=== PATIENT | male | born 1945 | race African-American/Black ===

== ENCOUNTER 2016-03-27 17:05 | Emergency (ER) | payer MEDICARE ==
--- NOTE | 2016-03-27 17:23 | ER Document Report ---
ED Medical Screen (RME) - General Stated Complaint: URINARY PROBLEM Notes: dark urine for 3 days was previously taking doxy and flagyl for an "infection" no other medical problems I have greeted and performed a rapid initial assessment of this patient. A comprehensive ED assessment and evaluation of the patient, analysis of test results and completion of the medical decision making process will be conducted by additional ED providers. Physical Exam - Vital signs Vitals: Temp Pulse Resp BP Pulse Ox 97.4 F 74 18 126/74 H 98 03/27/16 17:19 03/27/16 17:19 03/27/16 17:19 03/27/16 17:19 03/27/16 17:19 Course - Vital Signs Vital signs: Temp Pulse Resp BP Pulse Ox 97.4 F 74 18 126/74 H 98 03/27/16 17:19 03/27/16 17:19 03/27/16 17:19 03/27/16 17:19 03/27/16 17:19
[2016-03-27 18:50] LABS: APPEARANCE,URINE CLEAR; BILIRUBIN,URINE NEGATIVE (NEGATIVE); GLUCOSE, URINE NEGATIVE (NEGATIVE); KETONES,URINE NEGATIVE (NEGATIVE); LEUKOCYTE ESTERASE,URINE NEGATIVE (NEGATIVE); NITRITE,URINE NEGATIVE (NEGATIVE); PROTEIN,URINE NEGATIVE (NEGATIVE); URINE SPECIFIC GRAVITY 1.026; UROBILINOGEN,URINE NEGATIVE mg/dL (<2.0)
--- NOTE | 2016-03-27 18:50 | ER Document Report ---
ED GI/ - General Mode of Arrival: Ambulatory Information source: Patient TRAVEL OUTSIDE OF THE [place] IN LAST 30 DAYS: No - HPI Patient complains to provider of: Other - Dark Colored Urine Onset: Other - 3 days ago Timing/Duration: Sudden, Persistent <THAO GARCIA - Last Filed: 03/27/16 18:43> <HARIKA JAMESON - Last Filed: 03/27/16 21:43> - General Chief Complaint: Urinary Problem Stated Complaint: URINARY PROBLEM Notes: Patient is a 70 year old male presenting to the emergency department concerned of dark colored urine for the past 3 days. Patient's relative states that the urine that was collected here in the emergency department is not as dark as it has been at home. Patient is here visiting from [place], and his primary care provider has prescribed him Flagyl, Doxycycline, and Prilosec (03/14/2016) to take for an infection that neither the patient nor his relative know any information about. Patient smokes less than one pack per day and has a beer on occasion. Patient also has some mild dementia that he is not treated for. (THAO GARCIA) - Related Data Allergies/Adverse Reactions: No Known Allergies Allergy (Unverified 03/27/16 17:22) Past Medical History - General Information source: Patient, Relative - Social History Smoking Status: Never Smoker Chew tobacco use (# tins/day): No Frequency of alcohol use: None Drug Abuse: None Patient has suicidal ideation: No Patient has homicidal ideation: No Renal/ Medical History: Denies: Hx Peritoneal Dialysis Past Surgical History: Reports: None <THAO GARCIA - Last Filed: 03/27/16 18:43> Review of Systems - Review of Systems Constitutional: No symptoms reported EENT: No symptoms reported Cardiovascular: No symptoms reported Respiratory: No symptoms reported Gastrointestinal: No symptoms reported Genitourinary: See HPI, Other - Dark urine Male Genitourinary: No symptoms reported Musculoskeletal: No symptoms reported Skin: No symptoms reported Hematologic/Lymphatic: No symptoms reported Neurological/Psychological: No symptoms reported -: Yes All other systems reviewed and negative <THAO GARCIA - Last Filed: 03/27/16 18:43> Physical Exam - Vital signs Interpretation: Normal - General General appearance: Appears well, Alert - HEENT Head: Normocephalic, Atraumatic Eyes: Normal Pupils: PERRL - Respiratory Respiratory status: No respiratory distress Chest status: Nontender Breath sounds: Normal Chest palpation: Normal - Cardiovascular Rhythm: Regular Heart sounds: Normal auscultation Murmur: No - Abdominal Inspection: Normal Distension: No distension Bowel sounds: Normal Tenderness: Nontender Organomegaly: No organomegaly - Back Back: Normal, Nontender - Extremities General upper extremity: Normal inspection General lower extremity: Normal inspection - Neurological Neuro grossly intact: Yes Cognition: Other - Mildly demented Abe Coma Scale Eye Opening: Spontaneous Abe Coma Scale Verbal: Oriented [place] Coma Scale Motor: Obeys Commands Abe Coma Scale Total: 15 Speech: Normal - Psychological Associated symptoms: Normal affect, Normal mood - Skin Skin Temperature: Warm Skin Moisture: Dry Skin Color: Normal <THAO GARCIA - Last Filed: 03/27/16 18:43> Course <THAO GARCIA - Last Filed: 03/27/16 18:43> - Laboratory Result Diagrams: 03/27/16 20:15 03/27/16 20:15 <HARIKA JAMESON - Last Filed: 03/27/16 21:43> - Re-evaluation Re-evalutation: 03/27/16 21:41 The patient's urine was concentrated. Otherwise it was unremarkable. CBC and Chem-7 are unremarkable. I suspect the dark urine or worsening is due to him not drinking enough water. Family was counseled about how elderly and demented patients frequently loses their thirst drive and need to be reminded to drink water frequently. (HARIKA JAMESON) - Vital Signs Vital signs: Temp Pulse Resp BP Pulse Ox 97.4 F 74 18 126/74 H 98 03/27/16 17:19 03/27/16 17:19 03/27/16 17:19 03/27/16 17:19 03/27/16 17:19 (THAO GARCIA) (HARIKA JAMESON) - Laboratory Laboratory results interpreted by co: 03/27/16 20:15 RDW 14.3 H Seg Neutrophils % 26.7 L Lymphocytes % 58.5 H Absolute Neutrophils 1.3 L (HARIKA JAMESON) Discharge <THAO GARCIA - Last Filed: 03/27/16 18:43> <HARIKA JAMESON - Last Filed: 03/27/16 21:43> - Discharge Clinical Impression: Dehydration Condition: Stable Disposition: HOME, SELF-CARE Additional Instructions: The dark urine that was observed seems to be due to not drinking enough water. He should be encouraged to drink at least 8 full glasses of water on a daily basis. Follow-up with a local medical doctor if any problems. RETURN TO THE EMERGENCY ROOM IF ANY NEW OR WORSENING SYMPTOMS. Scribe Attestation: 03/27/16 21:43 I personally performed the services described in the documentation, reviewed and edited the documentation which was dictated to the scribe in my presence, and it accurately records my words and actions. (HARIKA JAMESON) Scribe Documentation - Scribe Written by Sharri:: Thao Garcia 03/27/2016 1843 acting as scribe for :: Som <THAO GARCIA - Last Filed: 03/27/16 18:43>
[2016-03-27 20:34] LABS: ABSOLUTE EOSINOPHILS # (AUTO) 0.1 10^3/uL (0.0-0.6); ABSOLUTE LYMPHOCYTES (AUTO) 2.8 10^3/uL (0.5-4.7); ABSOLUTE MONOCYTES (AUTO) 0.5 10^3/uL (0.1-1.4); ABSOLUTE NEUT (AUTO) 1.3 10^3/uL (1.7-8.2); BASOPHILS % (AUTO) 0.8 % (0-2); EOSINOPHILS % (AUTO) 2.6 % (0-6); HEMATOCRIT 42.1 % (37.9-51.0); HEMOGLOBIN 14.1 g/dL (13.5-17.0); HGB HCT DIFFERENCE 0.2; LYMPHOCYTES % (AUTO) 58.5 % (13-45); MEAN CORPUSCULAR HEMOGLOBIN 31.2 pg (27.0-33.4); MEAN CORPUSCULAR HGB CONC 33.4 g/dL (32.0-36.0); MEAN CORPUSCULAR VOLUME 93 fl (80-97); MONOCYTES % (AUTO) 11.4 % (3-13); RED BLOOD COUNT 4.52 10^6/uL (4.35-5.55); RED CELL DISTRIBUTION WIDTH 14.3 % (11.5-14.0); SEGMENTED NEUTROPHILS % (AUTO) 26.7 % (42-78); WHITE BLOOD COUNT 4.8 10^3/uL (4.0-10.5)
[2016-03-27 20:41] LABS: ALANINE AMINOTRANSFERASE 36 U/L (21-72); ALBUMIN 3.9 g/dL (3.5-5.0); ALKALINE PHOSPHATASE 62 U/L (38-126); ANION GAP 10 (5-19); ASPARTATE AMINO TRANSFERASE 27 U/L (17-59); BILIRUBIN,TOTAL 0.5 mg/dL (0.2-1.3); BLOOD UREA NITROGEN 12 mg/dL (7-20); CALCIUM 9.7 mg/dL (8.4-10.2); CARBON DIOXIDE 28 mmol/L (22-30); CHLORIDE 103 mmol/L (98-107); CREATININE RESULT 0.82 mg/dL (0.52-1.25); GLUCOSE 92 mg/dL (75-110); POTASSIUM 4.4 mmol/L (3.6-5.0); SODIUM 141.1 mmol/L (137-145); TOTAL PROTEIN 7.5 g/dL (6.3-8.2)
[2016-03-27 22:27] VITALS: BP 122/75
== END 2016-03-27 22:00 | disposition home or self-care (01) ==
LOC: ER 17:05
DX: E86.0 Dehydration (principal); R82.99 Other abnormal findings in urine; F17.210 Nicotine dependence, cigarettes, uncomplicated
CPT/HCPCS: 36415; 80053; 81001; 85025; 87086; 99283